=== PATIENT | female | born 1960 | race Caucasian/White ===

== ENCOUNTER → 2017-06-22 | Outpatient (CLI) | payer MEDICARE, MEDICAID ==
[~2017-06-22] MED LIST: ESCI20TA2 PO; MELO-195 PO; NFPRILOC40 PO
--- NOTE | 2017-06-22 15:57 | Diagnostic Imaging Report ---
EXAMINATION: CT low-dose lung screening for carcinoma. INDICATION: 80 pack year smoking history. TECHNIQUE: Routine images of the thorax were performed using the low dose CT lung screening protocol. COMPARISON: There are no prior exams available for comparison. FINDINGS: There is a small 5.4 mm calcified nodule in the periphery of the right lower lobe (image 33 of 56). There is a similar sized similar-appearing calcified nodule along the periphery of the left midlung. These nodules are felt to be related to benign granulomas. There is no other parenchymal lung mass identified. There is no sign of failure, pneumonia, or pleural effusion to suggest an acute abnormality. There does appear to be mild scar formation/fibrosis of the right middle lobe and lingula. The heart size is within normal limits. There does appear to be mild thickening of the pericardium. This is of uncertain etiology but could be sequela of a prior inflammatory/infectious process. It would be less likely that there is a small pericardial effusion present. If further study is desired, then echocardiography would be recommended. There are no coronary artery calcifications. The aortic is not abnormally dilated. There is no obvious mediastinal or hilar adenopathy. The thyroid gland was not well visualized. There is no obvious breast mass identified. The screening mammogram performed on 08/26/2016 failed to show any sign of malignancy. Sections through the upper abdomen are unremarkable for an acute abnormality. The bone windows show no sign of a fracture or destructive lesion. IMPRESSION: 1. There are small calcified granulomas in both lungs but there is no other solid parenchymal nodule identified. A followup CT low-dose lung cancer screening study in 1 year would be recommended for continued evaluation. 2. There is mild chronic disease involving the right middle lobe and lingula. There is no acute cardiopulmonary abnormality identified. 3. There does seem to be slight thickening of the pericardium. This is of uncertain etiology. Considerations and recommendations as above. LUNG RADS CATEGORY: 1B. Dictated on workstation # [id number]
== END ==
LOC: RAD 12:45
PROVIDERS: ATTEND Family Medicine
DX: Z12.2 Encounter for screening for malignant neoplasm of respiratory organs (principal); J84.10 Pulmonary fibrosis, unspecified; F17.210 Nicotine dependence, cigarettes, uncomplicated

== ENCOUNTER → 2019-07-14 | Outpatient (CLI) | payer MEDICARE, MEDICAID ==
--- NOTE | 2019-07-14 15:17 | Diagnostic Imaging Report ---
EXAM: CT CHEST SCREENING WO INDICATION: Current smoker. [id number]-bbul smoking history. COMPARISON: Low-dose lung screening chest CT 06/28/2018. FINDINGS: Moderate centrilobular emphysema. Bilateral calcified granulomas. Increasing interlobular septal thickening suggesting a degree of interstitial edema. No new pulmonary nodule or mass. No endobronchial lesions. No pleural effusion or pneumothorax. Normal heart size. Stable pericardial effusion measuring up to 0.5 cm. No mediastinal lymphadenopathy. Stable calcified hilar lymph nodes bilaterally. No acute findings in the visualized upper abdomen. Osseous structures are intact. IMPRESSION: 1. No new suspicious pulmonary nodule or mass. Recommend continued annual screening with low-dose chest CT in 12 months. 2. Stable moderate emphysema. 3. Increasing interlobular septal thickening suggests a degree of interstitial edema. 4. Stable small pericardial effusion. LungRads category: 1. Modifier: S. Please note that the low-dose technique of this chest CT is of non-diagnostic quality. This study is only intended for lung cancer screening of high risk patients. Dictated by: Dictated on workstation # [id number]
== END ==
LOC: RAD 13:55
PROVIDERS: ATTEND Nurse Practitioner Family
DX: Z09 Encounter for follow-up examination after completed treatment for conditions other than malignant neoplasm (principal); J43.9 Emphysema, unspecified; I31.3 Pericardial effusion (noninflammatory); F17.210 Nicotine dependence, cigarettes, uncomplicated

== ENCOUNTER → 2019-08-16 | Outpatient (CLI) | payer MEDICARE, MEDICAID ==
[~2019-08-16] VITALS: Ht 152 cm; Wt 64.0 kg
[~2019-08-16] MED LIST changes: +REGADENOSON 0.4 MG/5 ML SYR (LEXISCAN) IV ONE
[2019-08-16] MEDS: CATHETER FLUSH 10 ML SYR IV PRN ×2 (12:01→12:06)
[2019-08-16 12:49] VITALS: BP 158/100
--- NOTE | 2019-08-18 18:40 | STRESS TEST ---
DATE OF SERVICE: 08/16/2019 RESTING AND POST REGADENOSON TECHNETIUM-99M TETROFOSMIN SPECT CT IMAGING ORDERING PHYSICIAN: Dr. Jaeger. PRIMARY CARE PHYSICIAN: Dr. Mann. OTHER PHYSICIAN: Janel Renee APRN CLINICAL DIAGNOSES: Shortness of breath, diabetes, tobacco use. Baseline images were carried out after injection of 10.34 mCi of technetium-99m Tetrofosmin. This was followed by 0.4 mg regadenoson and 31.1 mCi of technetium-99m Tetrofosmin for stress imaging. The electrocardiogram showed sinus rhythm at baseline. It did not change significantly with the regadenoson infusion. The patient tolerated the procedure well. Review of images at rest and following stress indicates a small anteroapical perfusion defect that appears transient. Gated images show normal global left ventricular systolic function with normal regional wall motion. Left ventricular ejection fraction is calculated to be 79%. Left ventricular end diastolic volume is 43 mL. TID is absent (1.14). CONCLUSIONS: 1. This study is suggestive of a small amount of anteroapical ischemia. 2. Normal regional wall motion. 3. Normal global left ventricular systolic function with a calculated ejection fraction of 79%. Job ID: [id number] DocumentID: [id number] Dictated Date: 08/18/2019 17:43:40 Porcelain Finisher Date: 08/18/2019 18:39:30 Dictated By: JAYLA JAEGER MD, MA, FACP, FACC,
== END ==
LOC: CARD 11:26
PROVIDERS: ATTEND Internal Medicine Cardiovascular Disease
DX: I51.7 Cardiomegaly (principal); E11.9 Type 2 diabetes mellitus without complications; Z72.0 Tobacco use
CPT/HCPCS: 78452; 93017; 93306

== ENCOUNTER 2019-08-23 07:44 | Day surgery (SDC) | payer MEDICARE, MEDICAID ==
[~2019-08-23] VITALS: Ht 52.4 cm; Wt 63.6 kg
[2019-08-23] VITALS (9 sets, daily range): BP systolic 112–128; BP diastolic 66–77
[~2019-08-23 07:44] MED LIST changes: -REGADENOSON 0.4 MG/5 ML SYR (LEXISCAN) IV ONE
[2019-08-23] MEDS ORDERED: NS IV 1000 ML 1,000 ML IV SCH ×2 (08:05→11:11)
[2019-08-23] MEDS ORDERED: NS IV 1000 ML 1,000 ML ONE (08:08)
[2019-08-23] MEDS ORDERED: HEParin (CATH LAB) 2,000 ML IV ONE (08:08)
[2019-08-23] MEDS ORDERED: LIDOCAINE 1% INJ 20 ML 20 ML VIAL ONE (08:08)
[2019-08-23 08:28] LABS: HEMOGLOBIN 14.5 G/DL (11.5-16.0); MEAN PLATELET VOLUME 9.8 FL (7.4-10.4); WHITE BLOOD COUNT 8.9 10^3/uL (4.3-11.0)
[2019-08-23 08:39] LABS: INR 0.9 (0.8-1.4)
[2019-08-23 08:46] LABS: ALANINE AMINOTRANSFERASE 17 U/L (0-55); ALBUMIN 4.6 GM/DL (3.2-4.5); ALKALINE PHOSPHATASE 60 U/L (40-136); BILIRUBIN,TOTAL 0.3 MG/DL (0.1-1.0); BUN/CREATININE RATIO 6; CALCIUM 9.7 MG/DL (8.5-10.1); CARBON DIOXIDE 26 MMOL/L (21-32); CHLORIDE 105 MMOL/L (98-107); CREATININE SERUM 0.88 MG/DL (0.60-1.30); GFR ESTIMATED > 60; GLUCOSE 100 MG/DL (70-105); POTASSIUM 4.2 MMOL/L (3.6-5.0); SODIUM 142 MMOL/L (135-145); TOTAL PROTEIN 7.6 GM/DL (6.4-8.2)
[2019-08-23] MEDS ORDERED: OMEP40CA36 PO (08:51)
[2019-08-23] MEDS ORDERED: LAMO25TA75 PO (08:51)
[2019-08-23] MEDS ORDERED: ESCI20TA45 PO (08:51)
[2019-08-23] MEDS ORDERED: FAMO-119 PO (08:51)
[2019-08-23] MEDS ORDERED: MELO15TA39 PO (08:51)
[2019-08-23] MEDS ORDERED: ATOR10TA66 PO (08:51)
[2019-08-23] MEDS ORDERED: PREG100C PO (09:06)
[2019-08-23] MEDS ORDERED: ASPI-992 PO (09:06)
[2019-08-23] MEDS ORDERED: ARFO15VI3 IH (09:06)
[2019-08-23] MEDS ORDERED: ALB0.5V INH (09:06)
[2019-08-23] MEDS ORDERED: TRAM50TA2 PO (09:06)
[2019-08-23] MEDS ORDERED: BUDE10.2 IH (09:06)
[2019-08-23] MEDS ORDERED: METF-397 PO (09:06)
[2019-08-23] MEDS ORDERED: CHLO500T4 PO (09:06)
[2019-08-23] MEDS ORDERED: UMEC62.5 IH (09:06)
[2019-08-23] MEDS ORDERED: CALC-6 PO (09:06)
[2019-08-23] MEDS ORDERED: RT-ALBUINH INH (09:06)
[2019-08-23] MEDS ORDERED: CETI10TA20 PO (09:06)
[2019-08-23] MEDS ORDERED: BISA5TAB8 PO (09:06)
[2019-08-23] MEDS ORDERED: ALEN70TA5 PO (09:06)
--- NOTE | 2019-08-23 09:16 | NUR ---
SPOKE WITH PT (SHE HAD HER BOTTLES) WELL CALLING [facility] TO COMPLETE THE MED REC. PT WAS ABLE TO TELL ME HOW/WHEN SHE TAKES HER MEDS. THE FOLLOWING ARE FILL DATES ACCORDING TO [facility]: 02-05-2019 CHLORZOXAZONE #60 03-31-2019 TRAMADOL #60 06-27-2019 VENTOLIN #1 07-11-2019 LEXAPRO #76 07-19-2019 METFORMIN #134/67DS 07-19-2019 CETIRIZINE #30/30DS 07-21-2019 LYRICA #90/30DS 07-21-2019 FAMOTIDINE #60/30DS 07-24-2019 ALENDRONATE #4/28DS 07-25-2019 OMEPRAZOLE #90/90DS 07-25-2019 MELOXICAM #90/90DS 08-02-2019 ATORVASTATIN #85/85DS 08-10-2019 SYMBICORT #1 08-20-2019 INCRUSE #1 PT ALSO USES BROVANA AND ALBUTEROL NEB SOLU- DAUGHTER SAYS SHE NOT USE THESE OFTEN AND [facility] DID NOT HAVE A RECORD OF FILLING THEM RECENTLY. I CALLED THE DR'S OFFICE AND THEY DID NOT GIVE IT TO HER AND THOUGHT SHE USED [facility]. I THEN REACHED OUT TO [facility] AND THEY HAVE NOT FILLED ANYTHING FOR HER. I LEFT THIS ON THE MED REC INCASE SHE HAD A SUPPLY STOCKED UP AND ONLY USES PRN OTC MEDS: BISACODYL: PRN CALCIUM WITH VIT D: 1 BID EXCEDRIN: 2 TABS Q 8 H PRN
[2019-08-23] MEDS ORDERED: FLU QUADRIvalent (5+ YOA) 2019-2020 (AFLURIA) 0.5 ML IM ONE (09:30)
[2019-08-23] MEDS ORDERED: fentaNYL INJECTION 100 MCG/2 ML AMP ONE (10:41)
[2019-08-23] MEDS ORDERED: MIDAZOLAM 5 MG/5 ML (VERSED) VIAL ONE (10:41)
--- NOTE | 2019-08-23 11:11 | Cardiac Procedure Note-CS/ASA ---
Pre-Procedure Note Pre-Op Procedure Note H&P Reviewed The H&P was reviewed, patient examined and no changes noted. Date H&P Reviewed: Aug 23, 2019 Time H&P Reviewed: 11:11 Conscious Sedation Pre-Proced Time 11:11 ASA Score 3 For ASA 3 and 4: Consider anesthesia and medical clearance. Also, for patients with a history of failed moderate sedation consider anesthesia. Airway Lungs Heart ASA score ASA 1: a normal healthy patient ASA 2: a patient with a mild systemic disease (mid diabetes, controlled hypertension, obesity ASA 3: a patient with a severe systemic disease that limits activity (angina, COPD, prior Myocardial infarction) ASA 4: a patient with an incapacitating disease that is a constant threat to life (CHF, renal failure) ASA 5: a moribund patient not expected to survive 24 hrs. (ruptured aneurysm) ASA 6: a declared brain- patient whose organs are being harvested. For emergent operations, add the letter E after the classification Mallampati Classification Grade 2 Sedation Plan Analgesia, Amnesia, Plan communicated to team members, Discussed options with patient/fam, Discussed risks with patient/fam The patient is an appropriate candidate to undergo the planned procedure, sedation, and anesthesia. The patient immediately re-assessed prior to indication. JAYLA ANTOINE MD FACP FAC CCDS Aug 23, 2019 11:11
[2019-08-23] MEDS ORDERED: PATIENT MAY USE OWN MEDS, ALL PO SCH (11:15)
--- NOTE | 2019-08-23 11:35 | Discharge Inst-Post CATH ---
Discharge Inst-CATH/EP Post Cardiac Cath/EP D/C Inst Follow Up/Plan F/u with Dr Jaeger in 2 weeks ACTIVITY * Go Home directly and rest. * Limit activity of the leg (or wrist if it was used) for 7 days including aerobics, swimming, jogging, bicycling, etc. * Restrict stair-climbing for 7 days if possible, if not, climb up with your n on-cath leg, then bring together on the same step. * Avoid lifting, pushing, pulling or excessive movement of the affected ex tremity for 7 days. * Customary sexual activity may be resumed after 2 days-use caution not to use a position that strains or causes pain to the affected extremity. * No driving for 24 hours. * NO SMOKING. * Avoid straining for bowel movements for 7 days. * Gentle walking on level ground is allowed. * Returning to work will depend on the type of procedure and the results. Your doctor will discuss this with you. CALL YOUR DOCTOR FOR ANY OF THE FOLLOWING: *If bleeding from the puncture site occurs- Apply gentle pressure to site with clean cloth and call your doctor or EMS. * If a knot or lump forms under the skin, increases in size, or causes pain. * If bruising appears to be worsening or moving further down your leg instead of disappearing. * Temperature above 101 F. CARE OF YOUR GROIN INCISION; * Bruising or purple discoloration of the skin near the puncture site is common. * You may shower only, no bathtub bathing for 5 days. Be careful to avoid slipping as your leg may feel stiff. * If a closure device was used on your femoral artery, please see the attached guide regarding care of the device and your leg. * Leave dressing on FOR 24 hours. CARE OF YOUR WRIST INCISION; * Bruising or purple discoloration of the skin near the puncture site is common. * You may shower. * DO NOT submerge wrist. * Leave dressing on FOR 24 hours. JAYLA JAEGER MD FACP FAC CCDS Aug 23, 2019 11:35
--- NOTE | 2019-08-23 11:37 | Discharge Inst-Cardiology ---
Discharge Inst-Cardiac Discharge Medications Continued Medications: Albuterol Sulfate (Ventolin Hfa) 1 Puff Puff 2 PUFF INH Q4H PRN for SHORTNESS OF BREATH, PUFF 1 PUFF = 90 MCG Albuterol Sulfate (Albuterol Sulfate) 2.5 Mg/0.5 Ml Vial.neb 2.5 MG INH Q6H for SHORTNESS OF BREATH, EACH Alendronate Sodium (Alendronate Sodium) 70 Mg Tablet 70 MG PO WEEKLY, TAB Arformoterol Tartrate (Brovana) 15 Mcg/2 Ml Vial.neb 1 VIAL IH BID PRN for SHORTNESS OF BREATH, INHALER Aspirin/Acetaminophen/Caffeine (Excedrin Extra Strength Caplet) 1 Each Tablet 2 EACH PO Q8H PRN for HEADACHE, TAB Atorvastatin Calcium (Atorvastatin Calcium) 10 Mg Tablet 10 MG PO HS, TAB Bisacodyl (Bisacodyl) 5 Mg Tablet.dr 5 MG PO DAILY PRN for CONSTIPATION-4TH LINE, TAB Budesonide/Formoterol Fumarate (Symbicort 160-4.5 Mcg Inhaler) 10.2 Gm Hfa.aer.ad 2 PUFF IH BID, INHALER Calcium Carbonate/Vitamin D3 (Calcium 600 + Vit D 200 Tablet) 1 Each Tablet 1 EACH PO BID, TAB Cetirizine HCl (Zyrtec) 10 Mg Tablet 10 MG PO DAILY, TAB Chlorzoxazone (Chlorzoxazone) 500 Mg Tablet 500 MG PO BID PRN for MUSCLE SPASMS, TAB Escitalopram Oxalate (Escitalopram Oxalate) 20 Mg Tablet 20 MG PO DAILY, TAB Famotidine (Pepcid) 20 Mg Tablet 40 MG PO DAILY, TAB Lamotrigine (Lamictal) 25 Mg Tablet 25 MG PO BID, TAB Meloxicam (Meloxicam) 15 Mg Tablet 15 MG PO DAILY, TAB Omeprazole (Omeprazole) 40 Mg Capsule.dr 40 MG PO DAILY, CAP Pregabalin (Lyrica) 100 Mg Capsule 100 MG PO TID, CAP Tramadol HCl (Tramadol HCl) 50 Mg Tablet 50 MG PO BID PRN for PAIN-MODERATE, TAB Umeclidinium Witten (Incruse Ellipta) 62.5 Mcg Blst.w.dev 62.5 MCG IH DAILY Discontinued Medications: Metformin HCl (Metformin HCl) 500 Mg Tablet 500 MG PO BID, TAB Patient Instructions Patient Instructions: Hold METFORMIN until the morning of 08/26/19. Then resume previous home dose JAYLA ANTOINE MD FACP FAC CCDS Aug 23, 2019 11:37
--- NOTE | 2019-08-23 12:15 | NUR ---
THIS RN PAGED DR. ANTOINE AND INFORMED THAT NO DISCHARGE TIME WAS ENTERED. INFORMED 3 HOURS FROM NOW.
--- NOTE | 2019-08-23 14:44 | CARDIAC CATHETERIZATION ---
DATE OF SERVICE: 08/23/2019 CARDIAC CATHETERIZATION REPORT The patient is a 59-year-old lady, who has coronary artery disease risk factors and symptoms suggestive of an angina equivalent. A myocardial perfusion imaging study was indicative of anteroapical ischemia. Cardiac catheterization was carried out after having obtained an informed consent. DESCRIPTION OF PROCEDURE: She was brought to the cardiac catheterization laboratory in a fasting state. Right groin was prepared and draped in the usual sterile fashion. A 1% lidocaine with local anesthesia. Modified Seldinger technique was used to advance a 5-Guamanian sheath in right femoral artery, 5-Guamanian JL4 catheter was used for left coronary angiography, 5-Guamanian JR4 catheter was used for right coronary angiography, 5-Guamanian pigtail catheter was used for left heart catheterization and left ventricular angiography. Pigtail catheter was pulled back to the aortic arch and aortic arch angiography was performed. Pigtail was removed. Angiography of the right femoral artery had been carried out through the sheath at the beginning of the procedure. At the end of the procedure, Mynx was used to achieve hemostasis. She tolerated the procedure well. HEMODYNAMICS: Left ventricular end-diastolic pressure following coronary angiography was 16 mmHg. There is no significant pressure gradient on pullback across the aortic valve. Ascending aortic pressure was 118/79 with a mean of 98 mmHg. LEFT VENTRICULAR ANGIOGRAPHY: Left ventricular angiography was carried out in the anteroposterior distal or anteroposterior projection. Global left ventricular systolic function normal. No regional wall motion abnormalities seen in this view. Ejection fraction approximately 60%. AORTIC ARCH ANGIOGRAPHY: Aortic arch angiography did not indicate any significant thoracic aortic aneurysm or dissection. The neck arteries, to the extent visualized, do not exhibit significant disease. CORONARY ANGIOGRAPHY: Left main coronary artery, left circumflex artery, left anterior descending artery, right coronary artery do not exhibit angiographically significant disease. Right coronary artery is dominant. CONCLUSIONS: 1. No angiographically significant coronary artery disease. 2. Normal global left ventricular systolic function with ejection fraction of 60%. 3. Mildly to moderately elevated left ventricular end-diastolic pressure. DISCUSSION AND RECOMMENDATIONS: Based on results of the study, it appears appropriate to continue a conservative regimen. Risk factor modification has been reviewed. Outpatient followup is advised. Job ID: [id number] DocumentID: [id number] Dictated Date: 08/23/2019 11:30:25 Chief Lending Officer Date: 08/23/2019 14:43:45 Dictated By: JAYLA ANTOINE MD, MA, FACP, FACC,
== END 2019-08-23 15:28 | disposition home or self-care (01) ==
LOC: CATH 07:44 → SDC 11:44 → CATH 15:28
PROVIDERS: ATTEND Internal Medicine Cardiovascular Disease
DX: R42 Dizziness and giddiness (principal); I51.7 Cardiomegaly; E11.9 Type 2 diabetes mellitus without complications; F17.210 Nicotine dependence, cigarettes, uncomplicated; Z79.899 Other long term (current) drug therapy; Z82.49 Family history of ischemic heart disease and other diseases of the circulatory system; J44.9 Chronic obstructive pulmonary disease, unspecified; Z83.3 Family history of diabetes mellitus; Z88.8 Allergy status to other drugs, medicaments and biological substances
CPT/HCPCS: 36221; 36415; 80053; 85027; 85610; 85730; 87081; 93458

== ENCOUNTER → 2020-07-13 | Outpatient (CLI) | payer MEDICARE, MEDICAID ==
[~2020-07-13] MED LIST changes: +ALB0.5V INH; +ALEN70TA5 PO; +ARFO15VI3 IH; +ASPI-992 PO; +ATOR10TA66 PO; +BISA5TAB8 PO; +BUDE10.2 IH; +CALC-6 PO; +CETI10TA21 PO; +CHLO500T4 PO; +ESCI20TA45 PO; +FAMO-119 PO; +LAMO25TA75 PO; +MELO15TA39 PO; +METF-397 PO; +OMEP40CA27 PO; +PREG100C PO; +RT-ALBUINH INH; +TRM50T PO; +UMEC62.5 IH
--- NOTE | 2020-07-13 16:16 | Diagnostic Imaging Report ---
CT CHEST SCREENING WO TECHNIQUE: Low-dose unenhanced CT of the chest was performed according to the screening protocol. Coronal MIP and sagittal MPR reformats are created. Automatic exposure controls were utilized to keep dose as low as reasonably achievable. INDICATION: 46-yqkm-grbz history of smoking. Current smoker. COMPARISON: CT chest from 07/14/2019. FINDINGS: Pulmonary findings: No endoluminal nodule within the trachea. Moderate centrilobular emphysema is unchanged. Scattered calcified pulmonary granulomas are stable. Linear atelectasis/scar within the lingula and middle lobe is unchanged. No pulmonary nodules are developed that would be suspicious for clinically active lung cancer. Extrapulmonary findings: No axillary lymphadenopathy or pleural effusion. Small pericardial effusion is unchanged. No mediastinal, hilar, or juxtaphrenic lymphadenopathy. Calcified lymph nodes in the mediastinum and hilum are due to old granulomatous infection. IMPRESSION: 1. No change to indicate clinically active lung cancer. 2. Old granulomatous infection. 3. Stable small pericardial effusion. Lung-RADS category: 1 - Negative Recommendations: Continued annual screening with low-dose CT in 12 months. Dictated by: Dictated on workstation # [id number]
== END ==
LOC: RAD 09:45
PROVIDERS: ATTEND Nurse Practitioner Family
DX: Z12.2 Encounter for screening for malignant neoplasm of respiratory organs (principal); J44.9 Chronic obstructive pulmonary disease, unspecified; L92.8 Other granulomatous disorders of the skin and subcutaneous tissue; I31.3 Pericardial effusion (noninflammatory); F17.210 Nicotine dependence, cigarettes, uncomplicated

== ENCOUNTER → 2021-04-15 | Outpatient (CLI) | payer MEDICARE, MEDICAID ==
[~2021-04-15] MED LIST changes: -ALEN70TA5 PO; +ALEN70TA80 PO; -CALC-6 PO; +CALC1TAB84 PO; -CETI10TA21 PO; +CETI10TA49 PO; +ESCI20TA39 PO; -ESCI20TA45 PO
--- NOTE | 2021-04-15 11:16 | Diagnostic Imaging Report ---
PROCEDURE: MRI lumbar spine. TECHNIQUE: Multiplanar, multisequence MRI of the lumbar spine was performed without contrast. INDICATION: Chronic back pain. History of previous surgery. COMPARISON: None FINDINGS: For the purposes of this exam, last well-formed disc space is denoted to be the L5-S1 level. Metallic susceptibility artifact is noted at this disc space and is likely on the basis of indwelling disc spacer material. There is retropulsion posteriorly. Disc spacers are also likely present at L2-L3 and L3-L4. Multiple screw tracks are noted consistent with previous placement and subsequent removal of fusion hardware. Evaluation of static alignment also shows slight grade 1 retrolisthesis at L2-L3 as well as slight dextroscoliotic deformity. There is no evidence of jumped facets. Patient is status post previous laminectomy of L3-L5. There is no acute fracture. Evaluation of marrow signal demonstrates moderate Modic type I change of the adjacent endplates at L2-L3. There is also multilevel intervertebral disc height loss with anterior and posterior disc bulges. Visualized portions of the distal cord are unremarkable. Conus terminates at the L1 level. No abnormal intrathecal filling defects are seen. Pre and paravertebral soft tissue structures are unremarkable. Axial images demonstrate the following: T11-T12 through L1-L2: There is no large disc bulge or focal protrusion. There is no significant spinal canal or neuroforaminal stenosis. L2-L3: There is mild broad-based posterior disc bulge and bilateral ligamentum flavum laxity and facet arthropathy. As a result, there is moderate narrowing of the spinal canal and right neuroforamen. There is severe stenosis of the left neuroforamen. L3-L4: There is no large disc bulge or focal protrusion. There is bilateral facet arthropathy, but no significant spinal canal or neuroforaminal stenosis. L4-L5: Postsurgical changes as described above. There is bilateral facet arthropathy and slight asymmetric right-sided posterior disc bulge. This does result in asymmetric moderate stenosis of the right neuroforamen. There is minimal narrowing on the left. Spinal canal is unremarkable. L5-S1: There is left paracentric posterior disc protrusion, which may be associated with indwelling disc spacer material. This does result in asymmetric moderate narrowing of the spinal canal and probable asymmetric mass effect on the exiting left S1 nerve root. There is otherwise moderate narrowing of bilateral neural foramen. IMPRESSION: 1. Mass effect on the exiting left S1 nerve root, which appears to be secondary to retropulsed disc material and intervertebral disc spacer. Correlation with CT may be of benefit for further characterization. 2. Other multilevel degenerative changes of the lumbar spine, also significant at L2-L3 as described above. 3. No acute fracture or dislocation. Dictated by: Dictated on workstation # [id number]
== END ==
LOC: RAD 10:10
PROVIDERS: ATTEND Nurse Practitioner Family
DX: M47.26 Other spondylosis with radiculopathy, lumbar region (principal); M51.16 Intervertebral disc disorders with radiculopathy, lumbar region; M48.061 Spinal stenosis, lumbar region without neurogenic claudication; Z98.890 Other specified postprocedural states
CPT/HCPCS: 72148

== ENCOUNTER → 2021-06-11 | Outpatient (CLI) | payer MEDICARE, MEDICAID ==
[~2021-06-11] MED LIST changes: -OMEP40CA27 PO; +OMEP40CA6 PO
--- NOTE | 2021-06-11 15:49 | Diagnostic Imaging Report ---
INDICATION: Postmenopausal screening COMPARISON: 06/22/2014 FINDINGS: AP Spine L1-L4: [BMD (g/cm2): na] [T-Score: na] [Z-Score: na] [BMD Previous: na] [BMD % Change: na] LT Hip Neck: [BMD (g/cm2): 0.718] [T-Score: -2.3] [Z-Score: -1.1] LT Hip Total: [BMD (g/cm2):0.788] [T-Score:-1.7] [Z-Score: -0.9] [BMD Previous: 0.719] [BMD % Change: -0.4] RT Hip Neck: [BMD (g/cm2):0.785] [T-Score:-1.8] [Z-Score:-0.6] RT Hip Total: [BMD (g/cm2):0.805] [T-score:-1.6] [Z-Score:-0.7] [BMD Previous:0.763] [BMD % Change:5.5] *Indicates significant change from prior examination based on 95% confidence level. World Health Organization criteria for BMD interpretation classify patients as Normal (T-score at or above -1.0), Osteopenic (T-score between -1.0 and -2.5) or Osteoporotic (T-score at or below -2.5). LIMITATIONS AND MODIFICATION: None. FRACTURE RISK (FRAX SCORE): The ten year probability of (%): Major Osteoporotic Fracture: [11.2] Hip Fracture: [2.9] IMPRESSION: 1. Osteopenia (Low bone mass). 2. No significant change in bone mineral density since prior examination. 3. See below National Osteoporosis Foundation guidelines on when to potentially initiate pharmacologic therapy. Based on the National Osteoporosis Foundation Guidelines, pharmacologic treatment should be initiated in any of the following, unless clinical conditions suggest otherwise: * Any patient with prior fragility fracture of the hip or vertebrae. A spine fracture indicates 5X risk for subsequent spine fracture and 2X risk for subsequent hip fracture. * Osteoporosis (T-score <-2.5). * Postmenopausal women and men age 50 and older with low bone mass/osteopenia (T-score between -1.0 and -2.5) by DXA and 10-year major osteoporotic fracture greater than 20% or a 10-year probability of hip fracture greater than 3%. These fracture risks are supplied above in the FRAX score, if applicable. * Clinician judgement and/or patient preferences may indicate treatment for people with 10-year fracture probabilities above or below these levels. Dictated by: Dictated on workstation # [id number]
== END ==
LOC: RAD 14:30
PROVIDERS: ATTEND Nurse Practitioner Family
DX: Z13.820 Encounter for screening for osteoporosis (principal); M81.0 Age-related osteoporosis without current pathological fracture; M85.80 Other specified disorders of bone density and structure, unspecified site; Z78.0 Asymptomatic menopausal state
CPT/HCPCS: 77080

== ENCOUNTER → 2022-06-10 | Outpatient (CLI) | payer MEDICARE, MEDICAID ==
--- NOTE | 2022-06-10 11:30 | Diagnostic Imaging Report ---
EXAMINATION: CT Lung Screening. INDICATION: 44 pack year smoking history. TECHNIQUE: Noncontrast, low-dose CT imaging performed according to the lung cancer screening protocol. Auto Exposure Controls were utilize during the CT exam to meet ALARA standards for radiation dose reduction. COMPARISON: 07/13/2020. FINDINGS: Stable scattered benign calcified pulmonary granulomata are present. No noncalcified or suspicious pulmonary nodule. No findings of lung cancer. No axillary, hilar, or mediastinal lymphadenopathy. Chronic emphysematous changes are stable. There is no effusion or pneumothorax. The visualized upper abdomen is nonacute. Chronic small pericardial effusion without evidence for tamponade, stable. IMPRESSION: No findings to suggest lung cancer. Continued annual low-dose CT screening followup is recommended. LUNG-RADS CATEGORY: Category 1. MODIFIER: None. OTHER SIGNIFICANT FINDINGS: COPD and chronic small pericardial effusion with benign granulomatous residua. Dictated by: Dictated on workstation # [id number]
--- NOTE | 2022-06-10 12:36 | Diagnostic Imaging Report ---
INDICATION: Routine screening. COMPARISON: 08/26/2016 and 05/30/2014. TECHNIQUE: 2D and 3D bilateral screening mammography was performed with CAD. FINDINGS: Scattered fibroglandular densities are identified bilaterally. There are scattered benign calcifications. No mass or malignant-appearing microcalcifications are seen. The axillae are unremarkable. IMPRESSION: No mammographic features suspicious for malignancy are identified. ACR BI-RADS Category 2: Benign findings. Result letter will be mailed to the patient. Note: At least 10% of breast cancer is not imaged by mammography. Dictated by: Dictated on workstation # [id number]
== END ==
LOC: RAD 10:05
PROVIDERS: ATTEND Nurse Practitioner Family
DX: Z12.31 Encounter for screening mammogram for malignant neoplasm of breast (principal); Z12.2 Encounter for screening for malignant neoplasm of respiratory organs; F17.210 Nicotine dependence, cigarettes, uncomplicated
CPT/HCPCS: 71271; 77063; 77067